=== PATIENT | male | born 1960 | race Caucasian/White ===

== ENCOUNTER → 2021-01-12 | Outpatient (CLI) | payer BC ==
[~2021-01-12] VITALS: Ht 168 cm; Wt 88.0 kg
[~2021-01-12] MED LIST: BAMLANIVIMAB (NON FORM) 700 MG in NS (IVPB) 100 ML IV ONE; EPINEPHrine INJECTION 1 MG/ML AMP IM PRN; diphenhydrAMINE 50 MG/ML INJ (BENADRYL) IV PRN
[2021-01-12 08:06] VITALS: BP 104/72
[2021-01-12 09:19] VITALS: BP 95/67
== END ==
LOC: INFUSION 08:08
PROVIDERS: ATTEND Nurse Practitioner Family
DX: Z23 Encounter for immunization (principal); U07.1 COVID-19